=== PATIENT | male | born 1950 | race Caucasian/White ===

== ENCOUNTER 2017-06-29 22:19 | Inpatient (IN) | payer OTHER, MEDICARE ==
[~2017-06-29] VITALS: Ht 182.9 cm; Wt 131.2 kg
[2017-06-29 22:19] VITALS: BP 101/59; PULSE 52; RESP 18; O2SAT 97
[~2017-06-29 22:19] MED LIST: ASPI81CH3 PO; BACL20TA PO; BENZ100 PO; GABA400C5 PO; LISI-360 PO; PRAV40TA2 PO; TRAM50 PO; ZITH250T PO
[2017-06-29 22:24] VITALS: BP 133/64; PULSE 155; RESP 17; TEMP 98.3; O2SAT 96
[2017-06-29 22:30] VITALS: RESP 17; O2SAT 95
[2017-06-29] MEDS ORDERED: TRAM50TA PO (22:33)
[2017-06-29] MEDS ORDERED: TERA2CAP3 PO (22:33)
[2017-06-29] MEDS ORDERED: D200CAP PO (22:33)
[2017-06-29] MEDS ORDERED: GABA400C5 PO (22:33)
[2017-06-29] MEDS ORDERED: RANI300T PO (22:33)
[2017-06-29] MEDS ORDERED: LISI10TA PO (22:33)
[2017-06-29] MEDS ORDERED: PRAV40TA2 PO (22:33)
[2017-06-29] MEDS ORDERED: BACL10TA PO (22:33)
--- NOTE | 2017-06-29 22:35 | PD ---
HPI Chief Complaint: Cardiac Complaint Time Seen by Provider: 22:31 Travel History International Travel<30 days: No Contact w/Intl Traveler<30days: No Traveled to known affect area: No History of Present Illness HPI The patient is a 66 year old male who presents to the [facility] emergency department with a history of left arm pain, chest pain, headache, and fast heart rate that began 2 hours prior to arrival. He was sitting down when the symptoms suddenly began. The patient denies any history of irregular heart beat or CAD. He has had a cough with intermittent congestion over the last 3-4 weeks. He has intermittently been bringing up clear sputum. The patient denies any history of known fevers, neck pain, abdominal pain, vomiting, diarrhea, urinary symptoms, or neurologic symptoms. PCP: [facility] MELVIN Past Medical History Narrative Medical The patient's past medical history is significant for hypertension, hyperlipidemia, chronic back pain. Hx Anticoagulant Therapy: Yes (BABY ASA BID) Cardiovascular Problems: Yes (HTN, CHOL) High Cholesterol: Yes Diminished Hearing: No Hypertension: Yes Musculoskeletal: Yes (BACK PROBLEMS) Past Surgical History Narrative Surgical The patient's past surgical history is significant for cholecystectomy, tonsillectomy. Cholecystectomy: Yes (1997) Tonsillectomy: Yes Social History Alcohol Use: No Tobacco Use: No (QUIT ) Substance Use: No Allergies-Medications (Allergen,Severity, Reaction): Coded Allergies: azithromycin (Verified Allergy, Mild, Tingling, 06/30/17) Reported Meds & Prescriptions Reported Meds & Active Scripts Active Reported Tramadol (Tramadol HCl) 50 Mg Tab 50 Mg PO Q4H PRN Baclofen 10 Mg Tab 10 Mg PO Q8HR D3 Super Strength (Cholecalciferol) 2,000 Unit Cap 1,000 Units PO DAILY Lisinopril-Hctz 10-12.5 Mg Tab 1 Tab PO DAILY Ranitidine (Ranitidine HCl) 300 Mg Tab 300 Mg PO BID Terazosin (Terazosin HCl) 2 Mg Cap 2 Mg PO HS Pravastatin 40 Mg Tab 40 Mg PO HS Gabapentin 400 Mg Cap 400 Cap PO BID Review of Systems Except as stated in HPI: all other systems reviewed are Neg General / Constitutional: No: Fever Eyes: No: Visual changes HENT: Positive: Congestion, No: Headaches Cardiovascular: Positive: Chest Pain or Discomfort, Palpitations, Tachycardia, Dyspnea on exertion Respiratory: Positive: Cough, No: Shortness of Breath Gastrointestinal: Positive: Changes in Bowel Habits (one soft stool earlier today), No: Nausea, Vomiting, Diarrhea, Abdominal Pain Genitourinary: No: Dysuria Musculoskeletal: No: Pain Skin: No Rash Neurologic: No: Weakness Psychiatric: No: Depression Endocrine: No: Polydipsia Hematologic/Lymphatic: No: Easy Bruising Physical Exam Narrative General: The patient is a well-developed well-nourished male in no acute distress. Head and Neck exam: Head is normocephalic atraumatic. Eyes: EOMI, pupils are equal round and reactive to light. Nose: Midline septum with pink mucous membranes Mouth: Dentition unremarkable. Moist mucus membranes. Posterior oropharynx is not erythematous. No tonsillar hypertrophy. Uvula midline. Airway patent. Neck: No palpable lymphadenopathy. No nuchal rigidity. No thyromegaly. Cardiovascular: Irregularly irregular with a rate in the 130s without murmurs, gallops, or rubs. Lungs: Clear to auscultation bilaterally. No wheezes, rhonchi, or rales. Abdomen: Soft, without tenderness to palpation in all 4 quadrants of the abdomen. No guarding, rebound, or rigidity. Normal bowel sounds are audible. No tenderness on palpation of McBurney's point. Extremities: No clubbing or cyanosis. The patient has trace pedal edema bilateral lower extremities. 2+ pulses in all 4 extremities. No calf tenderness on palpation. Back: No costovertebral angle tenderness to palpation. Neurologic Exam: Grossly nonfocal. Skin Exam: No rash noted. Intact skin that is warm and dry. Data Data Last Documented VS Vital Signs Date Time Temp Pulse Resp B/P (MAP) Pulse Ox O2 Delivery O2 Flow Rate FiO2 06/30/17 00:09 83 19 66/38 (47) 94 Nasal Cannula 2.00 06/29/17 22:24 98.3 Orders Orders Electrocardiogram (06/29/17 22:31) Complete Blood Count With Diff (06/29/17 22:31) Comprehensive Metabolic Panel (06/29/17 22:31) Creatine Kinase (Cpk) (06/29/17 22:31) Ckmb (Isoenzyme) Profile (06/29/17 22:) Troponin I (06/29/17 22:31) B-Type Natriuretic Peptide (06/29/17 22:31) Prothrombin Time / Inr (Pt) (06/29/17 22:31) Act Partial Throm Time (Ptt) (06/29/17 22:31) Lipase (06/29/17:31) Urinalysis - C+S If Indicated (06/29/17 22:31) Magnesium (Mg) (06/29/17 22:31) Thyroid Stimulating Hormone (06/29/17 22:31) Chest, Single Ap (06/29/17 22:31) Iv Access Insert/Monitor (06/29/17 22:31) Ecg Monitoring (06/29/17 22:31) Oximetry (06/29/17 22:31) Blood Pressure (06/29/17 22:32) Diltiazem Inj (Cardizem Inj) (06/29/17 22:45) Diltiazem Inj (Cardizem Inj) (06/29/17 22:45) Sodium Chloride 0.9% Flush (Ns Flush) (06/29/17 22:45) Aspirin Chew (Aspirin Chew) (06/29/17 22:45) Nitroglycerin 2% Oint (Nitroglycerin 2% (06/29/17 22:45) Sodium Chlorid 0.9% 500 Ml Inj (Ns 500 M (06/29/17 22:45) Ct Brain W/O Iv Contrast(Rout) (06/29/17 22:47) CKMB (06/29/17 22:35) CKMB% (06/29/17 22:35) Ceftriaxone Inj (Rocephin Inj) (06/29/17 23:45) Azithromycin Inj (Zithromax Inj) (06/29/17 23:45) Sodium Chlor 0.9% 1000 Ml Inj (Ns 1000 M (06/30/17 00:15) Calcium Gluconate Inj (Calcium Gluconate (06/30/17 00:15) Admit Order (Ed Use Only) (06/30/17 00:09) Labs Laboratory Tests Test 06/29/17 22:35 06/29/17 23:57 White Blood Count 11.1 TH/MM3 Red Blood Count 4.67 MIL/MM3 Hemoglobin 14.1 GM/DL Hematocrit 41.6 % Mean Corpuscular Volume 89.0 FL Mean Corpuscular Hemoglobin 30.3 PG Mean Corpuscular Hemoglobin Concent 34.0 % Red Cell Distribution Width 13.7 % Platelet Count 247 TH/MM3 Mean Platelet Volume 8.9 FL Neutrophils (%) (Auto) 68.8 % Lymphocytes (%) (Auto) 21.6 % Monocytes (%) (Auto) 7.0 % Eosinophils (%) (Auto) 1.4 % Basophils (%) (Auto) 1.2 % Neutrophils # (Auto) 7.6 TH/MM3 Lymphocytes # (Auto) 2.4 TH/MM3 Monocytes # (Auto) 0.8 TH/MM3 Eosinophils # (Auto) 0.2 TH/MM3 Basophils # (Auto) 0.1 TH/MM3 CBC Comment DIFF FINAL Differential Comment Prothrombin Time 10.6 SEC Prothromb Time International Ratio 1.0 RATIO Activated Partial Thromboplast Time 30.4 SEC Blood Urea Nitrogen 25 MG/DL Creatinine 1.51 MG/DL Random Glucose 134 MG/DL Total Protein 8.0 GM/DL Albumin 4.2 GM/DL Calcium Level 9.2 MG/DL Magnesium Level 2.2 MG/DL Alkaline Phosphatase 109 U/L Aspartate Amino Transf (AST/SGOT) 22 U/L Alanine Aminotransferase (ALT/SGPT) 38 U/L Total Bilirubin 0.3 MG/DL Sodium Level 139 MEQ/L Potassium Level 3.6 MEQ/L Chloride Level 106 MEQ/L Carbon Dioxide Level 24.9 MEQ/L Anion Gap 8 MEQ/L Estimat Glomerular Filtration Rate 46 ML/MIN Total Creatine Kinase 180 U/L Creatine Kinase MB 2.6 NG/ML Troponin I LESS THAN 0.02 NG/ML B-Type Natriuretic Peptide 24 PG/ML Lipase 128 U/L Thyroid Stimulating Hormone 3rd Gen 3.090 uIU/ML Urine Color YELLOW Urine Turbidity CLEAR Urine pH 5.5 Urine Specific [place] 1.033 Urine Protein TRACE mg/dL Urine Glucose (UA) NEG mg/dL Urine Ketones NEG mg/dL Urine Occult Blood NEG Urine Nitrite NEG Urine Bilirubin NEG Urine Urobilinogen 2.0 MG/DL Urine Leukocyte Esterase SMALL Urine RBC 1 /hpf Urine WBC 3 /hpf Urine Squamous Epithelial Cells <1 /hpf Urine Mucus MANY /lpf Microscopic Urinalysis Comment CULT NOT INDICATED MDM Medical Decision Making Medical Screen Exam Complete: Yes Emergency Medical Condition: Yes Medical Record Reviewed: Yes Interpretation(s) Last Impressions Head CT 06/29/172246 Signed Impressions: Service Date/Time: Thursday, June 29, 2017 22:46 - CONCLUSION: Nothing acute. Terrance Webster MD Chest X-Ray 06/29/172230 Signed Impressions: Service Date/Time: Thursday, June 29, 2017 22:35 - CONCLUSION: 1. Left basilar airspace disease may represent atelectasis or early infiltrate. 2. Right lung is clear. Heart size is normal. Terrance Webster MD Differential Diagnosis A. fib with RVR, versus acute coronary syndrome, versus hyperthyroid disorder, versus pneumonia Narrative Course During the course of the patients emergency department visit, the patients history, examination, and differential diagnosis were reviewed with the patient. The patient was placed on a cardiac rehabilitation program director with oximetry and frequent blood pressure monitoring. The patient had IV access obtained and blood work sent for analysis. The patient had an ECG done on arrival. The patient's ECG reveals atrial fibrillation with RVR, no acute ST segment elevation. Nonspecific ST-T wave abnormalities. The patient was initially provided normal saline a 500 mL bolus times one, Cardizem 20 mg IV followed by a Cardizem drip. The patients laboratory studies were reviewed and remarkable for a white count of 11.1, hemoglobin 14.1, platelets 247 with a normal differential. CMP is remarkable for BUN of 25, creatinine 1.51, glucose 134, initial set of cardiac enzymes are within normal limits, BNP is 24, lipase 128, TSH 3.09, PT 10.6, PTT 30.4, urinalysis showed small leukocyte esterase otherwise unremarkable Radiology studies were reviewed and remarkable for a chest x-ray that showed a left basilar infiltrate. The patient was started on antibiotic to cover for pneumonia given his recent history of congestion and cough over the last 3-4 weeks. The patient had a drop in his blood pressure while on the Cardizem drip. The Cardizem drip was held. The patient was also initially placed on nitroglycerin 1 inch per chest wall for chest pain, however this was removed when he became hypotensive. An additional fluid bolus was administered. The hypotension resolved. The patients results were discussed with the patient, including the plan of care. I explained that further testing and/ or monitoring is indicated based on the patients history, examination, and/ or laboratory findings. Therefore, I recommended admission for additional evaluation. The patient expressed understanding and was agreeable with this plan. The patient was admitted to the hospital in guarded condition and sent to a bed under the care of the [facility] service. Physician Communication Physician Communication The patient's case including history, pertinent physical examination findings, and laboratory studies were discussed with Dr. Sepulveda. It was agreed that the patient would be admitted to the [facility] service. Diagnosis Primary Impression: Atrial fibrillation with RVR Additional Impression: Pneumonia Qualified Codes: J18.1 - Lobar pneumonia, unspecified organism Admitting Information Admitting Physician Requests: it Dinora Michelle MD Jun 29, 2017 22:35
[2017-06-29 22:41] VITALS: BP 114/53; PULSE 92; RESP 17; O2SAT 94
[2017-06-29] MEDS ORDERED: ASPIRIN 81 MG CHEW TAB CHEW ONE (22:45)
[2017-06-29] MEDS ORDERED: NITROGLYCERIN 2% OINT 1 GM PACKET TOPICAL ONE (22:45)
[2017-06-29] MEDS ORDERED: SODIUM CHLORID 0.9% 500 ML INJ 500 ML IV ONE (22:45)
[2017-06-29] MEDS ORDERED: SODIUM CHLORIDE 0.9% FLUSH 5 ML FLUSH IV FLUSH PRN (22:45)
[2017-06-29] MEDS ORDERED: DILTIAZEM HCL 25 MG/5 ML VIAL IV PUSH ONE (22:45)
--- NOTE | 2017-06-29 22:50 | RADRPT ---
EXAM DATE/TIME: 06/29/2017 22:35 [facility] COMPARISON: No previous studies available for comparison. INDICATIONS : Chest pain. Short of breath. Palpitations. Distal arm pain. MEDICAL HISTORY : None. SURGICAL HISTORY : None. ENCOUNTER: Initial ACUITY: 1 day PAIN SCORE: 3/10 LOCATION: Bilateral chest FINDINGS: A single view of the chest demonstrates the lungs to be symmetrically aerated with some airspace cons olidation in the left base, particularly medially. Right lung is clear. Heart size is normal. Osseous structures are intact CONCLUSION: 1. Left basilar airspace disease may represent atelectasis or early infiltrate. 2. Right lung is clear. Heart size is normal. Terrance Webster MD on June 29, 2017 at 22:46 Board Certified Radiologist. This report was verified electronically.
[2017-06-29 23:00] VITALS: BP 128/67; PULSE 106; RESP 17; O2SAT 97
[2017-06-29 23:01] LABS: AUTOMATED NEUTROPHIL # 7.6 TH/MM3 (1.8-7.7); BASOPHIL # 0.1 TH/MM3 (0-0.2); BASOPHIL % 1.2 % (0.0-2.0); EOSINOPHIL # 0.2 TH/MM3 (0-0.4); EOSINOPHIL % 1.4 % (0.0-4.0); HEMATOCRIT 41.6 % (39.0-51.0); HEMO FLAGS DIFF FINAL; LYMPH % 21.6 % (9.0-44.0); LYMPHOCYTE # 2.4 TH/MM3 (1.0-4.8); MEAN CORPUSCULAR HEMOGLOBIN 30.3 PG (27.0-34.0); NEUT % 68.8 % (16.0-70.0); PLATELET COUNT 247 TH/MM3 (150-450); RED BLOOD COUNT 4.67 MIL/MM3 (4.50-5.90); RED CELL DISTRIBUTION WIDTH 13.7 % (11.6-17.2); WHITE BLOOD COUNT 11.1 TH/MM3 (4.0-11.0)
[2017-06-29 23:10] LABS: APTT (PATIENT) 30.4 SEC (24.3-30.1); PROTHROMBIN TIME - PATIENT 10.6 SEC (9.8-11.6)
--- NOTE | 2017-06-29 23:16 | RADRPT ---
EXAM DATE/TIME: 06/29/2017 22:46 [facility] COMPARISON: No previous studies available for comparison. INDICATIONS : Cephalgia. RADIATION DOSE: 56.35 CTDIvol (mGy) MEDICAL HISTORY : Hypertension. SURGICAL HISTORY : None. ENCOUNTER: Initial ACUITY: 1 day PAIN SCALE: 5/10 LOCATION: cranial TECHNIQUE: Multiple contiguous axial images were obtained of the head. Using automated exposure control and adj ustment of the mA and/or kV according to patient size, radiation dose was kept as low as reasonably a chievable to obtain optimal diagnostic quality images. DICOM format image data is available electro nically for review and comparison. FINDINGS: CEREBRUM: The ventricles are normal for age. No evidence of midline shift, mass lesion, hemorrhage or acute in farction. No extra-axial fluid collections are seen. POSTERIOR FOSSA: The cerebellum and brainstem are intact. The 4th ventricle is midline. The cerebellopontine angle i s unremarkable. EXTRACRANIAL: The visualized portion of the orbits is intact. SKULL: The calvaria is intact. No evidence of skull fracture. CONCLUSION: Nothing acute. Terrance Webster MD on June 29, 2017 at 23:14 Board Certified Radiologist. This report was verified electronically.
[2017-06-29 23:20] LABS: ANION GAP 8 MEQ/L (5-15); AST (GOT) 22 U/L (15-37); BICARBONATE 24.9 MEQ/L (21.0-32.0); BLOOD UREA NITROGEN 25 MG/DL (7-18); CHLORIDE 106 MEQ/L (98-107); GLOMERULAR FILTRATION RATE 46 ML/MIN (>89); MAGNESIUM 2.2 MG/DL (1.5-2.5); POTASSIUM 3.6 MEQ/L (3.5-5.1); SODIUM (NA) 139 MEQ/L (136-145)
[2017-06-29] MEDS: DILTIAZEM INJ 125 MG in SODIUM CHLORIDE 0.9% INJ 100 ML IV PRN (23:25)
[2017-06-29 23:32] LABS: ALKALINE PHOSPHATASE 109 U/L (45-117); ALT (GPT) 38 U/L (12-78); CREATINE KINASE 180 U/L (39-308); TOTAL BILIRUBIN ADULT 0.3 MG/DL (0.2-1.0)
[2017-06-29 23:36] VITALS: BP 135/75; PULSE 119; RESP 14; O2SAT 98
[2017-06-29 23:44] LABS: CKMB 2.6 NG/ML (0.5-3.6)
[2017-06-29] MEDS ORDERED: cefTRIAXone INJ 1,000 MG in SODIUM CHLORIDE 0.9% INJ 100 ML IV ONE (23:45)
[2017-06-29] MEDS ORDERED: AZITHROMYCIN INJ 500 MG in SODIUM CHLOR 0.9% 250 ML INJ 250 ML IV ONE (23:45)
[2017-06-30] VITALS (28 sets, daily range): BP systolic 66–126; BP diastolic 38–78; PULSE 51–123; RESP 13–20; TEMP 97.7–98.6; O2SAT 92–98
[2017-06-30] MEDS: DILTIAZEM INJ 125 MG in SODIUM CHLORIDE 0.9% INJ 100 ML IV PRN (00:09)
[2017-06-30] MEDS ORDERED: SODIUM CHLOR 0.9% 1000 ML INJ 1,000 ML IV ONE (00:15)
[2017-06-30] MEDS ORDERED: SODIUM CHLORIDE 0.9% FLUSH 10 ML FLUSH IV FLUSH PRN (00:15)
[2017-06-30] MEDS ORDERED: CALCIUM GLUCONATE INJ 1 GM in DEXTROSE 5% IN WATER 100ML INJ 100 ML IV ONE ×2 (00:15)
[2017-06-30 00:29] LABS: BLOOD, URINE NEG (NEG); GLUCOSE,URINE NEG (NEG); KETONE, URINE NEG (NEG); MUCUS URINE MANY /lpf (OCC); NITRITE,URINE NEG (NEG); PH, URINE 5.5 (5.0-8.5); SQUAMOUS EPITHELIAL CELL URINE <1 /hpf (0-5); URINE COLOR YELLOW (YELLW/STRAW)
[2017-06-30 00:30] LABS: COMMENT (UR) CULT NOT INDICATED; CULTURE IF INDICATED CULT NOT INDICATED
[2017-06-30] MEDS ORDERED: AMIODARONE INJ 150 MG in DEXTROSE 5% IN WATER 100ML INJ 97 ML IV ONE ×2 (01:01)
[2017-06-30] MEDS: AMIODARONE INJ 450 MG in DEXTROSE 5% IN WATE(EXCEL) INJ 241 ML IV PRN ×2 (02:12)
--- NOTE | 2017-06-30 05:12 | HHI.HP ---
HPI Service [facility] Primary Care Physician Unknown Admission Diagnosis afib with rvr, chest pain r/o mi, lung infiltrate Diagnoses: Travel History International Travel<30 Days: No Contact w/Intl Traveler <30 Da: No Traveled to Known Affected Are: No History of Present Illness 66-year-old male with a past medical history significant for hypertension, hyperlipidemia and chronic back pain presents with new onset chest pain, heart palpitations and lightheadedness that began approximately 2 hours before coming to the emergency department. The patient reports that he went to work like he usually does yesterday and came home and began experiencing symptoms. He took his prescription medication of ibuprofen with no relief. He has no history of cardiac issues or irregular heartbeat. In the emergency department and his heart rate was 155 and EKG was significant for atrial fibrillation with rapid ventricular response. No ST segment elevations or depressions. He was treated with a diltiazem bolus and drip and subsequently became hypotensive to 73/39. His hypotension resolved with IV fluid hydration. Review of Systems Denies fever or chills Denies blurry vision, otorrhea, rhinorrhea Denies sore throat and cough History of chest pain and palpitations. No shortness of breath. No abdominal pain Denies constipation/diarrhea/nausea/vomiting Denies muscle pain/weakness No rashes Past Family Social History Past Medical History Hypertension Hyperlipidemia Chronic low back pain Past Surgical History Tonsillectomy Cholecystectomy Reported Medications Reported Meds & Active Scripts Active Reported Tramadol (Tramadol HCl) 50 Mg Tab 50 Mg PO Q4H PRN Baclofen 10 Mg Tab 10 Mg PO Q8HR D3 Super Strength (Cholecalciferol) 2,000 Unit Cap 1,000 Units PO DAILY Lisinopril-Hctz 10-12.5 Mg Tab 1 Tab PO DAILY Ranitidine (Ranitidine HCl) 300 Mg Tab 300 Mg PO BID Terazosin (Terazosin HCl) 2 Mg Cap 2 Mg PO HS Pravastatin 40 Mg Tab 40 Mg PO HS Gabapentin 400 Mg Cap 400 Cap PO BID Allergies: Coded Allergies: azithromycin (Verified Allergy, Mild, Tingling, 06/30/17) Family History Mother with cardiomyopathy. Social History Quit smoking 40 years ago. Rare alcohol. Denies marijuana or illicit drugs. Physical Exam Vital Signs Vital Signs Date Time Temp Pulse Resp B/P (MAP) Pulse Ox O2 Delivery O2 Flow Rate FiO2 06/30/17 04:00 89 06/30/17 03:04 120 06/30/17 03:00 97.7 74 16 113/71 (85) 96 06/30/17 02:12 75 102/69 06/30/17 02:00 97 06/30/17 01:28 06/30/17 01:17 123 88/52 06/30/17 00:45 102 17 97/54 (68) Nasal Cannula 2.00 97 06/30/17 00:28 106 17 104/51 (68) 97 Nasal Cannula 2.00 06/30/17 00:25 95 Nasal Cannula 3.00 06/30/17 00:17 108 13 82/46 (58) 97 Nasal Cannula 2.00 06/30/17 00:09 83 19 66/38 (47) 94 Nasal Cannula 2.00 06/30/17 00:09 116 73/39 06/29/17 23:36 119 14 135/75 (95) 98 Nasal Cannula 2.00 06/29/17 23:25 116 128/67 06/29/17 23:00 106 17 128/67 (87) 97 Nasal Cannula 2.00 06/29/17 22:41 92 17 114/53 (73) 94 Nasal Cannula 2.00 06/29/17 22:30 17 95 Nasal Cannula 2.00 06/29/17 22:24 98.3 155 17 133/64 (87) 96 06/29/17 22:19 52 18 101/59 (73) 97 Room Air Physical Exam GENERAL: male lying in bed sleeping SKIN: No rashes, ecchymoses or lesions. Cool and dry. HEAD: Atraumatic. Normocephalic. No temporal or scalp tenderness. EYES: Pupils equal round and reactive. Extraocular motions intact. No scleral icterus. No injection or drainage. ENT: Nose without bleeding, purulent drainage or septal hematoma. Throat without erythema, tonsillar hypertrophy or exudate. Uvula midline. Airway patent. NECK: Trachea midline. No JVD or lymphadenopathy. Supple, nontender, no meningeal signs. CARDIOVASCULAR: Irregularly irregular rate. Tachycardic. No murmurs/rubs/ gallops. RESPIRATORY: Clear to auscultation. Breath sounds equal bilaterally. No wheezes , rales, or rhonchi. GASTROINTESTINAL: Abdomen soft, non-tender, nondistended. No hepato-splenomegaly , or palpable masses. No guarding. MUSCULOSKELETAL: Extremities without clubbing, cyanosis, or edema. No joint tenderness, effusion, or edema noted. No calf tenderness. Negative Homans sign bilaterally. NEUROLOGICAL: Awake and alert. Cranial nerves II through XII intact. Motor and sensory grossly within normal limits. Normal speech. Laboratory Laboratory Tests Test 06/29/17 22:35 06/29/17 23:57 White Blood Count 11.1 Red Blood Count 4.67 Hemoglobin 14.1 Hematocrit 41.6 Mean Corpuscular Volume 89.0 Mean Corpuscular Hemoglobin 30.3 Mean Corpuscular Hemoglobin Concent 34.0 Red Cell Distribution Width 13.7 Platelet Count 247 Mean Platelet Volume 8.9 Neutrophils (%) (Auto) 68.8 Lymphocytes (%) (Auto) 21.6 Monocytes (%) (Auto) 7.0 Eosinophils (%) (Auto) 1.4 Basophils (%) (Auto) 1.2 Neutrophils # (Auto) 7.6 Lymphocytes # (Auto) 2.4 Monocytes # (Auto) 0.8 Eosinophils # (Auto) 0.2 Basophils # (Auto) 0.1 CBC Comment DIFF FINAL Differential Comment Prothrombin Time 10.6 Prothromb Time International Ratio 1.0 Activated Partial Thromboplast Time 30.4 Blood Urea Nitrogen 25 Creatinine 1.51 Random Glucose 134 Total Protein 8.0 Albumin 4.2 Calcium Level 9.2 Magnesium Level 2.2 Alkaline Phosphatase 109 Aspartate Amino Transf (AST/SGOT) 22 Alanine Aminotransferase (ALT/SGPT) 38 Total Bilirubin 0.3 Sodium Level 139 Potassium Level 3.6 Chloride Level 106 Carbon Dioxide Level 24.9 Anion Gap 8 Estimat Glomerular Filtration Rate 46 Total Creatine Kinase 180 Creatine Kinase MB 2.6 Troponin I LESS THAN 0.02 B-Type Natriuretic Peptide 24 Lipase 128 Thyroid Stimulating Hormone 3rd Gen 3.090 Urine Color YELLOW Urine Turbidity CLEAR Urine pH 5.5 Urine Specific [place] 1.033 Urine Protein TRACE Urine Glucose (UA) NEG Urine Ketones NEG Urine Occult Blood NEG Urine Nitrite NEG Urine Bilirubin NEG Urine Urobilinogen 2.0 Urine Leukocyte Esterase SMALL Urine RBC 1 Urine WBC 3 Urine Squamous Epithelial Cells <1 Urine Mucus MANY Microscopic Urinalysis Comment CULT NOT INDICATED Result Diagram: 06/29/17223406/29/172234 Caprini VTE Risk Assessment Caprini VTE Risk Assessment: Mod/High Risk (score >= 2) Caprini Risk Assessment Model Point Value = 1 Point Value = 2 Point Value = 3 Point Value = 5 Age 41-60 Minor surgery BMI > 25 kg/m2 Swollen legs Varicose veins or History of unexplained or recurrent spontaneous Oral contraceptives or hormone replacement Sepsis (< 1 month) Serious lung disease, including pneumonia (< 1 month) Abnormal pulmonary function Acute myocardial infarction Congestive heart failure (< 1 month) History of inflammatory bowel disease Medical patient at bed rest Age 61-74 Arthroscopic surgery Major open surgery (> 45 min) Laparoscopic surgery (> 45 min) Malignancy Confined to bed (> 72 hours) Immobilizing plaster cast Central venous access Age >= 75 History of VTE Family history of VTE Factor V Leiden Prothrombin [id number] Lupus anticoagulant Anticardiolipin antibodies Elevated serum homocysteine Heparin-induced thrombocytopenia Other congenital or acquired thrombophilia Stroke (< 1 month) Elective arthroplasty Hip, pelvis, or leg fracture Acute spinal cord injury (< 1 month) Prophylaxis Regimen Total Risk Factor Score Risk Level Prophylaxis Regimen 0-1 Low Early ambulation 2 Moderate Order ONE of the following: *Sequential Compression Device (SCD) *Heparin 5000 units SQ BID 3-4 Higher Order ONE of the following medications: *Heparin 5000 units SQ TID *Enoxaparin/Lovenox 40 mg SQ daily (WT < 150 kg, CrCl > 30 mL/min) *Enoxaparin/Lovenox 30 mg SQ daily (WT < 150 kg, CrCl > 10-29 mL/min) *Enoxaparin/Lovenox 30 mg SQ BID (WT < 150 kg, CrCl > 30 mL/min) AND/OR *Sequential Compression Device (SCD) 5 or more Highest Order ONE of the following medications: *Heparin 5000 units SQ TID (Preferred with Epidurals) *Enoxaparin/Lovenox 40 mg SQ daily (WT < 150 kg, CrCl > 30 mL/min) *Enoxaparin/Lovenox 30 mg SQ daily (WT < 150 kg, CrCl > 10-29 mL/min) *Enoxaparin/Lovenox 30 mg SQ BID (WT < 150 kg, CrCl > 30 mL/min) AND *Sequential Compression Device (SCD) Assessment and Plan Assessment and Plan 66-year-old male with a past medical history significant for hypertension, hyperlipidemia and chronic lower back pain presents with new onset A. fib with RVR and chest pain. 1. New onset atrial fibrillation with rapid ventricular response EKG showed A. fib with RVR, no ST segment elevations or depressions, reviewed by me Initial troponin within normal limits ACS rule out pending; serial troponins/EKGs Patient started on diltiazem bolus/drip and became hypotensive requiring aggressive fluid resuscitation in the emergency department. He was transitioned to an amiodarone drip. BP now 113/71, pulse 89. Cardiology consulted, appreciate assistance 2. SUSANNE BUN/creatinine 25/1.51 (baseline unknown) Patient status post 2 L in the ED Monitor BMP 2. Hypertension Holding home antihypertensives at this time as patient became hypotensive to 73/ 39 3. Hyperlipidemia Continue home statin FEN Heart healthy diet Electrolytes: monitor and replete prn SCDs Physician Certification 2 Midnight Certification Type: Admission for Inpatient Services Order for Inpatient Services The services are ordered in accordance with Medicare regulations or non- Medicare payer requirements, as applicable. In the case of services not specified as inpatient-only, they are appropriately provided as inpatient services in accordance with the 2-midnight benchmark. Estimated LOS (days): 2 2 days is the estimated time the patient will need to remain in the hospital, assuming treatment plan goals are met and no additional complications. Post-Hospital Plan: Not yet determined Lida Sepulveda MD Jun 30, 2017 05:12
[2017-06-30 07:05] LABS: CREATINE KINASE 137 U/L (39-308)
[2017-06-30] MEDS ORDERED: AMIODARONE INJ 150 MG in DEXTROSE 5% IN WATER 100ML INJ 100 ML IV ONE ×2 (08:16)
--- NOTE | 2017-06-30 08:34 | MB ---
cc: MAYUR FREEMAN M.D. DATE OF CONSULTATION 06/30/2017 REASON FOR CONSULTATION Chest pain, atrial fibrillation. HISTORY OF PRESENT ILLNESS The patient is a 66-year-old white male with a history of hypertension, hyperlipidemia, who was in his usual state of health up until about 08:30 p.m. last night when he began to experience pounding, racing, fluttering palpitations. At the same time he developed a fairly severe bilateral headache and a substernal chest tightness. He is unsure how long the chest tightness lasted, possibly 20-30 minutes. The palpitations persisted for probably at least a couple of hours. He has continued to have slight palpitations this morning. This morning he also had an episode of chest tightness lasting a few minutes. His headache has considerably improved. The patient denies shortness of breath, nausea, diaphoresis, paroxysmal nocturnal dyspnea, syncope, near-syncope. He has intermittently felt lightheaded. Chronically he has dependent ankle edema without significant change recently. PAST MEDICAL HISTORY 1. Hypertension. 2. Hyperlipidemia. PAST SURGICAL HISTORY 1. Tonsillectomy. 2. Cholecystectomy. CARDIAC MEDICATIONS AT HOME 1. Pravastatin 40 mg q.h.s. 2. Lisinopril HCT 10.5 one q.d. ALLERGIES AZITHROMYCIN. FAMILY HISTORY The patient's mother may have sustained myocardial infarctions in her 50s and 60s. SOCIAL HISTORY The patient quit smoking more than 30 years ago . He denies alcohol abuse. REVIEW OF SYSTEMS As in the history of present illness , otherwise negative or noncontributory. He also denies visual changes, unilateral weakness or numbness, abdominal pain, melena, dyspepsia, bright red blood per rectum. PHYSICAL EXAMINATION VITAL SIGNS: His blood pressure is 113/71 with a pulse of 120, respirations 16. GENERAL He is a well-developed, well-nourished white male in no acute distress. NECK/HEENT EXAMINATION: Jugular venous pressure is normal. Carotid pulses are 2+ bilaterally and without bruits. EXAMINATION OF THE CHEST: Clear lung torres. CARDIAC EXAMINATION: He has a tachycardiac, regular rhythm, without S3-S4 or murmur. ABDOMINAL EXAMINATION: He has a soft, obese, nontender abdomen. Bowel sounds are present. There is no definite hepatosplenomegaly. EXAMINATION OF THE EXTREMITIES: No clubbing, cyanosis or edema. LABORATORY DATA WBC 11.1, hemoglobin 14.1, platelets 247. Potassium 3.6, BUN 25, creatinine 1.51. Negative cardiac enzymes. CHEST X-RAY Left basilar airspace disease, possibly due to atelectasis. EKG Atrial fibrillation with a rapid ventricular response, anterolateral ST depression, consider ischemia. IMPRESSION Paroxysmal atrial fibrillation, chest pain in this 66-year-old white male with history of hypertension and hyperlipidemia. At this time on monitoring he may be in an atrial tachycardia. Initial EKG did show atrial fibrillation. His chest pains here in the last 24 hours are somewhat suggestive of angina. Cardiac enzymes are negative for myocardial infarction. The etiology of the atrial fibrillation may be his history of hypertension. With respect to his thromboembolic risk, it appears to be overall low, providing his left ventricular function is normal. Echocardiogram is pending. RECOMMENDATIONS 1. Daily aspirin. 2. Agree with intravenous amiodarone for now. 3. Start oral Cardizem. 4. Check a Lexiscan nuclear stress test. 5. Await his 2-D echo. MD AYUSH Clemente/TAE /8:10 AM /8:20 AM MTDD
--- NOTE | 2017-06-30 08:54 | HHI.PR ---
Subjective Remarks in no distress. denies chest pain or dizziness today. Objective Vitals Vital Signs Date Time Temp Pulse Resp B/P (MAP) Pulse Ox O2 Delivery O2 Flow Rate FiO2 06/30/17 06:06 84 06/30/17 05:00 105 06/30/17 04:00 89 06/30/17 03:04 120 06/30/17 03:00 97.7 74 16 113/71 (85) 96 06/30/17 02:12 75 102/69 06/30/17 02:00 97 06/30/17 01:28 06/30/17 01:17 123 88/52 06/30/17 00:45 102 17 97/54 (68) Nasal Cannula 2.00 97 06/30/17 00:28 106 17 104/51 (68) 97 Nasal Cannula 2.00 06/30/17 00:25 95 Nasal Cannula 3.00 06/30/17 00:17 108 13 82/46 (58) 97 Nasal Cannula 2.00 06/30/17 00:09 83 19 66/38 (47) 94 Nasal Cannula 2.00 06/30/17 00:09 116 73/39 06/29/17 23:36 119 14 135/75 (95) 98 Nasal Cannula 2.00 06/29/17 23:25 116 128/67 06/29/17 23:00 106 17 128/67 (87) 97 Nasal Cannula 2.00 06/29/17 22:41 92 17 114/53 (73) 94 Nasal Cannula 2.00 06/29/17 22:30 17 95 Nasal Cannula 2.00 06/29/17 22:24 98.3 155 17 133/64 (87) 96 06/29/17 22:19 52 18 101/59 (73) 97 Room Air I/O 06/29/17 06/29/17 06/29/17 06/30/17 06/30/17 06/30/17 07:00 15:00 23:00 07:00 15:00 23:00 Intake Total 2173 ml Output Total 400 ml Balance 1773 ml Intake Oral 240 ml IV Total 1933 ml Output Urine Total 400 ml Result Diagram: 06/29/17223406/29/172234 Imaging Last Impressions Head CT 06/29/172246 Signed Impressions: Service Date/Time: Thursday, June 29, 2017 22:46 - CONCLUSION: Nothing acute. Terrance Webster MD Chest X-Ray 06/29/171 Signed Impressions: Service Date/Time: Thursday, June 29, 2017 22:35 - CONCLUSION: 1. Left basilar airspace disease may represent atelectasis or early infiltrate. 2. Right lung is clear. Heart size is normal. Terrance Webster MD Objective Remarks GENERAL: This is a well-nourished, well-developed patient, in no apparent distress. CARDIOVASCULAR: Regular rate and irregular rhythm without murmurs, gallops, or rubs. RESPIRATORY: Clear to auscultation. Breath sounds equal bilaterally. No wheezes , rales, or rhonchi. GASTROINTESTINAL: Abdomen soft, non-tender, nondistended. Normal, active bowel sounds MUSCULOSKELETAL: Extremities without clubbing, cyanosis, or edema. NEURO: Alert & Oriented x4 to person, place, time, situation. Moves all ext x4 Medications and IVs Current Medications Diltiazem HCl 125 mg/Sodium Chloride 125 ml @ 5 mls/hr TITRATE PRN IV tachycardia Last administered on 06/29/17 23:25; Start 06/29/17 at 22:45; Stop 06/30/17 at 01:00; Status DC Diltiazem HCl (Cardizem Inj) 20 mg BOLUS ONCE IV PUSH Last administered on 22:44; Start 06/29/17 at 22:45; Stop 06/29/17 at 22:46; Status DC IV Flush (NS Flush) 2 ml UNSCH PRN IV FLUSH FLUSH AFTER USING IV ACCESS; Start 06/29/17 at 22:45; Stop 06/30/17 at 00:25; Status DC Aspirin (Aspirin Chew) 162 mg ONCE ONCE CHEW Last administered on 06/29/17 22:49; Start 06/29/17 at 22:45; Stop 06/29/17 at 22:46; Status DC Nitroglycerin (Nitroglycerin 2% Oint) 1 inch ONCE ONCE TOPICAL Last administered on 06/29/17 22:49; Start 06/29/17 at 22:45; Stop 06/29/17 at 22 :46; Status DC Sodium Chloride 500 ml @ 500 mls/hr BOLUS ONCE IV Last administered on 22:45; Start 06/29/17 at 22:45; Stop 06/29/17 at 23:44; Status DC Ceftriaxone Sodium 1000 mg/ Sodium Chloride 100 ml @ 200 mls/hr ONCE ONCE IV Last administered on 06/30/17 00:23; Start 06/29/17 at 23:45; Stop 06/30/17 at 00:14; Status DC Azithromycin 500 mg/Sodium Chloride 250 ml @ 250 mls/hr ONCE ONCE IV Last administered on 06/30/17 00:04; Start 06/29/17 at 23:45; Stop 06/30/17 at 00 :44; Status DC Sodium Chloride 1,000 ml @ 1,000 mls/hr Q1H ONCE IV Last administered on 06/30 00:12; Start 06/30/17 at 00:15; Stop 06/30/17 at 01:14; Status DC Calcium Gluconate 1 gm/Dextrose 110 ml @ 110 mls/hr ONCE ONCE IV Last administered on 06/30/17 00:17; Start 06/30/17 at 00:15; Stop 06/30/17 at 01 :14; Status DC Sodium Chloride (NS Flush) 2 ml UNSCH PRN IV FLUSH FLUSH AFTER USING IV ACCESS ; Start 06/30/17 at 00:15 Sodium Chloride (NS Flush) 2 ml BID IV FLUSH ; Start 06/30/17 at 09:00 Amiodarone HCl 450 mg/Dextrose 250 ml @ 33.33 mls/ hr Q7H31M PRN IV Per Protocol Last administered on 06/30/17 02:12; Start 06/30/17 at 01:11 Amiodarone HCl 150 mg/Dextrose 100 ml @ 100 mls/hr Q1H ONCE IV Last administered on 06/30/17 01:17; Start 06/30/17 at 01:01; Stop 06/30/17 at 02 :00; Status DC Gabapentin (Neurontin) 400 mg BID PO ; Start 06/30/17 at 09:00 Pravastatin Sodium (Pravachol) 40 mg HS PO ; Start 06/30/17 at 21:00 Terazosin HCl (Hytrin) 2 mg HS PO ; Start 06/30/17 at 21:00 Famotidine (Pepcid) 40 mg BID PO ; Start 06/30/17 at 09:00 Diltiazem HCl (Cardizem) 30 mg QID PO ; Start 06/30/17 at 09:00 Aspirin (Ecotrin Ec) 162 mg DAILY PO ; Start 06/30/17 at 09:00 Amiodarone HCl 150 mg/Dextrose 103 ml @ 600 mls/hr Q11M ONCE IV ; Start at 08:16; Stop 06/30/17 at 08:27; Status DC A/P Assessment and Plan A/P 1. New onset atrial fibrillation with rapid ventricular response EKG showed A. fib with RVR, no ST segment elevations or depressions, reviewed by me Initial troponin within normal limits Patient started on diltiazem bolus/drip and became hypotensive requiring aggressive fluid resuscitation in the emergency department. He was transitioned to an amiodarone drip. continue po cardizem and aspirin echo and stress test pending. Cardiology consult appreciated. 2. renal insufficiency with unknown duration BUN/creatinine 25/1.51 (baseline unknown) Patient status post 2 L in the ED Monitor BMP 2. Hypertension continue po cardizem with close monitoring of BP. 3. Hyperlipidemia Continue home statin Jose Roberto Best MD Jun 30, 2017 08:54
[2017-06-30] MEDS: ASPIRIN EC 81 MG TABEC PO SCH (09:04)
[2017-06-30] MEDS: DILTIAZEM HCL 30 MG TAB PO SCH ×4 (09:04→20:51)
[2017-06-30] MEDS: FAMOTIDINE 20 MG TAB PO SCH ×2 (09:04→20:51)
[2017-06-30] MEDS: SODIUM CHLORIDE 0.9% FLUSH 10 ML FLUSH IV FLUSH SCH ×2 (09:05→20:50)
[2017-06-30] MEDS: GABAPENTIN 400 MG CAP PO SCH ×2 (09:05→20:50)
[2017-06-30 12:28] LABS: HEMATOCRIT 39.2 % (39.0-51.0); MEAN CELL VOLUME 90.3 FL (80.0-100.0); MEAN CORPUSCULAR HEMOGLOBIN 30.8 PG (27.0-34.0); MEAN CORPUSCULAR HGB CONC 34.2 % (32.0-36.0); PLATELET COUNT 212 TH/MM3 (150-450); RED BLOOD COUNT 4.34 MIL/MM3 (4.50-5.90); REVIEW FLAG FINAL; WHITE BLOOD COUNT 9.2 TH/MM3 (4.0-11.0)
[2017-06-30 12:56] LABS: ANION GAP 6 MEQ/L (5-15); BLOOD UREA NITROGEN 21 MG/DL (7-18); CHLORIDE 106 MEQ/L (98-107); GLOMERULAR FILTRATION RATE 65 ML/MIN (>89); POTASSIUM 3.8 MEQ/L (3.5-5.1); SODIUM (NA) 137 MEQ/L (136-145)
[2017-06-30 13:00] LABS: CREATINE KINASE 125 U/L (39-308)
--- NOTE | 2017-06-30 17:40 | EKG ---
Date Performed: 06/30/2017 Time Performed: 04:11:46 PTAGE: 66 years EKG: Atrial fibrillation with rapid ventricular response Incomplete RBBB Anteroseptal ST-T reina es are nonspecific Since previous tracing, no significant change noted Abnormal ECG PREVIOUS TRACING : 06/29/2017 22.26 DOCTOR: Shabnam Thomas Interpretating Date/Time 06/30/2017 17:39:39
--- NOTE | 2017-06-30 17:40 | EKG ---
Date Performed: 06/29/2017 Time Performed: 22:26:42 PTAGE: 66 years EKG: ATRIAL FIBRILLATION WITH RAPID VENTRICULAR RESPONSE INCOMPLETE RIGHT BUNDLE BRANCH BLOCK NO NSPECIFIC ST & T-WAVE ABNORMALITY ABNORMAL RHYTHM ECG NO PREVIOUS TRACING DOCTOR: Shabnam Thomas Interpretating Date/Time 06/30/2017 17:39:25
[2017-06-30] MEDS: PRAVASTATIN SOD 40 MG TAB PO SCH (20:51)
[2017-06-30] MEDS: TERAZOSIN HCL 1 MG CAP PO SCH (20:51)
[2017-07-01] VITALS (21 sets, daily range): BP systolic 120–147; BP diastolic 69–77; PULSE 68–94; RESP 16–18; TEMP 98.4–99.1; O2SAT 93–95
[2017-07-01] MEDS: AMIODARONE INJ 450 MG in DEXTROSE 5% IN WATE(EXCEL) INJ 241 ML IV PRN ×4 (03:54→18:47)
--- NOTE | 2017-07-01 08:17 | PD.CARD.PN ---
Subjective Subjective Remarks Denies recurrent palpitations, recurrent CP. Denies dizziness, PND, nausea. Objective Medications Item Value Date Time Pravastatin Sodium 40 mg 06/30/172099 (Pravachol) HS/PO 06/30/172050 Terazosin HCl 2 mg 06/30/172099 (Hytrin) HS/PO 06/30/172050 Diltiazem HCl 30 mg 06/30/17899 (Cardizem) QID/PO 06/30/172050 Aspirin 162 mg 06/30/17899 (Ecotrin Ec) DAILY/PO 06/30/17 09 Amiodarone HCl 250 ml @ 33.33 mls/hr 06/30/17 0111 450 mg/Dextrose .Q7H31M PRN/IV 07/01/17 0354 Current Medications Medications (Trade) Dose Ordered Sig/Lety Route Start Time Stop Time Status Last Admin (NS Flush) 2 ml UNSCH PRN IV FLUSH 06/30/17 00:15 (NS Flush) 2 ml BID IV FLUSH 06/30/17 09:00 06/30/17 09:05 Amiodarone HCl 450 mg/Dextrose 250 ml @ 33.33 mls/ hr Q7H31M PRN IV 06/30/17 01:11 07/01/17 03:54 (Neurontin) 400 mg BID PO 06/30/17 09:00 06/30/17 20:50 (Pravachol) 40 mg HS PO 06/30/17 21:00 06/30/17 20:51 (Hytrin) 2 mg HS PO 06/30/17 21:00 06/30/17 20:51 (Pepcid) 40 mg BID PO 06/30/17 09:00 06/30/17 20:51 (Cardizem) 30 mg QID PO 06/30/17 09:00 06/30/17 20:51 (Ecotrin Ec) 162 mg DAILY PO 06/30/17 09:00 06/30/17 09:04 Vital Signs / I&O Vital Signs Date Time Temp Pulse Resp B/P (MAP) Pulse Ox O2 Delivery O2 Flow Rate FiO2 07/01/17 06:00 71 07/01/17 05:00 68 07/01/17 04:00 73 07/01/17 04:00 98.7 73 16 120/69 (86) 94 07/01/17 03:54 73 120/69 07/01/17 03:00 72 07/01/17 02:00 70 07/01/17 01:00 70 07/01/17 00:00 68 06/30/17 23:00 72 06/30/17 23:00 98.5 73 16 118/69 (85) 92 06/30/17 22:00 72 06/30/17 21:00 70 06/30/17 20:00 98.3 72 16 126/78 (94) 94 06/30/17 20:00 70 06/30/17 19:00 64 06/30/17 18:00 71 06/30/17 17:00 77 06/30/17 16:00 72 06/30/17 15:00 67 06/30/17 15:00 98.6 67 20 117/68 (84) 96 06/30/17 14:00 70 06/30/17 13:00 69 06/30/17 12:00 70 06/30/17 11:00 65 06/30/17 11:00 98.0 65 20 114/70 (85) 93 06/30/17 10:00 51 06/30/17 09:00 76 I/O 06/30/17 06/30/17 06/30/17 07/01/17 07/01/17 07/01/17 07:00 15:00 23:00 07:00 15:00 23:00 Intake Total 2173 ml 691 ml 444 ml Output Total 400 ml 1025 ml Balance 1773 ml 691 ml -581 ml Intake Oral 240 ml 480 ml 240 ml IV Total 1933 ml 211 ml 204 ml Output Urine Total 400 ml 1025 ml # Voids 3 # Bowel Movements 1 0 Physical Exam GENERAL: Well developed, well nourished. No acute distress. HEENT: Jugular venous pressure is normal. CHEST: Lungs clear to auscultation bilaterally. Unlabored respiratory effort. CARDIAC: Regular rate and rhythm without S3, S4, or murmur. ABDOMEN: Soft, nontender, no hepatosplenomegaly. Bowel sounds present. EXTREMITIES: No clubbing, cyanosis, or edema. Laboratory Laboratory Tests Test 06/30/17 11:48 White Blood Count 9.2 TH/MM3 Red Blood Count 4.34 MIL/MM3 Hemoglobin 13.4 GM/DL Hematocrit 39.2 % Mean Corpuscular Volume 90.3 FL Mean Corpuscular Hemoglobin 30.8 PG Mean Corpuscular Hemoglobin Concent 34.2 % Red Cell Distribution Width 14.0 % Platelet Count 212 TH/MM3 Mean Platelet Volume 8.9 FL Blood Urea Nitrogen 21 MG/DL Creatinine 1.12 MG/DL Random Glucose 99 MG/DL Calcium Level 8.9 MG/DL Sodium Level 137 MEQ/L Potassium Level 3.8 MEQ/L Chloride Level 106 MEQ/L Carbon Dioxide Level 25.0 MEQ/L Anion Gap 6 MEQ/L Estimat Glomerular Filtration Rate 65 ML/MIN Total Creatine Kinase 125 U/L Troponin I LESS THAN 0.02 NG/ML Assessment and Plan Problem List: (1) Paroxysmal atrial fibrillation ICD Codes: I48.0 - Paroxysmal atrial fibrillation Status: Acute Plan: Back in NSR. Tolerating Amiodarone so far. Thromboembolic risk overall low providing LV function normal. Echo pending. REC continue IV Amiodarone through today change to long acting diltiazem continue aspirin (2) Chest pain ICD Codes: R07.9 - Chest pain, unspecified Status: Acute Plan: Stable overnight. Cardiac enzymes negative for OR. For Lexiscan nuclear stress test today. (3) Hypertension ICD Codes: I10 - Essential (primary) hypertension Status: Chronic Plan: Stable. Normotensive. Code Status full code Discussed Condition With patient Problem Qualifiers (1) Chest pain: Qualified Codes: R07.9 - Chest pain, unspecified (2) Hypertension: Qualified Codes: I10 - Essential (primary) hypertension Sanket Gutierrez MD Jul 01, 2017 08:17
--- NOTE | 2017-07-01 09:32 | HHI.PR ---
Subjective Remarks in no acute distress. denies chest pain or sob. no new complaints. Objective Vitals Vital Signs Date Time Temp Pulse Resp B/P (MAP) Pulse Ox O2 Delivery O2 Flow Rate FiO2 07/01/17 08:43 98.7 75 16 130/74 (92) 94 07/01/17 08:39 75 07/01/17 08:00 71 07/01/17 06:00 71 07/01/17 05:00 68 07/01/17 04:00 73 07/01/17 04:00 98.7 73 16 120/69 (86) 94 07/01/17 03:54 73 120/69 07/01/17 03:00 72 07/01/17 02:00 70 07/01/17 01:00 70 07/01/17 00:00 68 06/30/17 23:00 72 06/30/17 23:00 98.5 73 16 118/69 (85) 92 06/30/17 22:00 72 06/30/17 21:00 70 06/30/17 20:00 98.3 72 16 126/78 (94) 94 06/30/17 20:00 70 06/30/17 19:00 64 06/30/17 18:00 71 06/30/17 17:00 77 06/30/17 16:00 72 06/30/17 15:00 67 06/30/17 15:00 98.6 67 20 117/68 (84) 96 06/30/17 14:00 70 06/30/17 13:00 69 06/30/17 12:00 70 06/30/17 11:00 65 06/30/17 11:00 98.0 65 20 114/70 (85) 93 06/30/17 10:00 51 I/O 06/30/17 06/30/17 06/30/17 07/01/17 07/01/17 07/01/17 07:00 15:00 23:00 07:00 15:00 23:00 Intake Total 2173 ml 691 ml 444 ml Output Total 400 ml 1025 ml Balance 1773 ml 691 ml -581 ml Intake Oral 240 ml 480 ml 240 ml IV Total 1933 ml 211 ml 204 ml Output Urine Total 400 ml 1025 ml # Voids 3 # Bowel Movements 1 0 Result Diagram: 06/30/17 1148 06/30/17 1148 Imaging Last Impressions Head CT 06/29/17 2247 Signed Impressions: Service Date/Time: Thursday, June 29, 2017 22:46 - CONCLUSION: Nothing acute. Terrance Webster MD Chest X-Ray 06/29/172230 Signed Impressions: Service Date/Time: Thursday, June 29, 2017 22:35 - CONCLUSION: 1. Left basilar airspace disease may represent atelectasis or early infiltrate. 2. Right lung is clear. Heart size is normal. Terrance Webster MD Objective Remarks GENERAL: This is a well-nourished, well-developed patient, in no apparent distress. CARDIOVASCULAR: Regular rate and irregular rhythm without murmurs, gallops, or rubs. RESPIRATORY: Clear to auscultation. Breath sounds equal bilaterally. No wheezes , rales, or rhonchi. GASTROINTESTINAL: Abdomen soft, non-tender, nondistended. Normal, active bowel sounds MUSCULOSKELETAL: Extremities without clubbing, cyanosis, or edema. NEURO: Alert & Oriented x4 to person, place, time, situation. Moves all ext x4 Medications and IVs Current Medications Diltiazem HCl 125 mg/Sodium Chloride 125 ml @ 5 mls/hr TITRATE PRN IV tachycardia Last administered on 06/29/17 23:25; Start 06/29/17 at 22:45; Stop 06/30/17 at 01:00; Status DC Diltiazem HCl (Cardizem Inj) 20 mg BOLUS ONCE IV PUSH Last administered on 22:44; Start 06/29/17 at 22:45; Stop 06/29/17 at 22:46; Status DC IV Flush (NS Flush) 2 ml UNSCH PRN IV FLUSH FLUSH AFTER USING IV ACCESS; Start 06/29/17 at 22:45; Stop 06/30/17 at 00:25; Status DC Aspirin (Aspirin Chew) 162 mg ONCE ONCE CHEW Last administered on 06/29/17 22:49; Start 06/29/17 at 22:45; Stop 06/29/17 at 22:46; Status DC Nitroglycerin (Nitroglycerin 2% Oint) 1 inch ONCE ONCE TOPICAL Last administered on 06/29/17 22:49; Start 06/29/17 at 22:45; Stop 06/29/17 at 22 :46; Status DC Sodium Chloride 500 ml @ 500 mls/hr BOLUS ONCE IV Last administered on 22:45; Start 06/29/17 at 22:45; Stop 06/29/17 at 23:44; Status DC Ceftriaxone Sodium 1000 mg/ Sodium Chloride 100 ml @ 200 mls/hr ONCE ONCE IV Last administered on 06/30/17 00:23; Start 06/29/17 at 23:45; Stop 06/30/17 at 00:14; Status DC Azithromycin 500 mg/Sodium Chloride 250 ml @ 250 mls/hr ONCE ONCE IV Last administered on 06/30/17 00:04; Start 06/29/17 at 23:45; Stop 06/30/17 at 00 :44; Status DC Sodium Chloride 1,000 ml @ 1,000 mls/hr Q1H ONCE IV Last administered on 06/30 00:12; Start 06/30/17 at 00:15; Stop 06/30/17 at 01:14; Status DC Calcium Gluconate 1 gm/Dextrose 110 ml @ 110 mls/hr ONCE ONCE IV Last administered on 06/30/17 00:17; Start 06/30/17 at 00:15; Stop 06/30/17 at 01 :14; Status DC Sodium Chloride (NS Flush) 2 ml UNSCH PRN IV FLUSH FLUSH AFTER USING IV ACCESS ; Start 06/30/17 at 00:15 Sodium Chloride (NS Flush) 2 ml BID IV FLUSH Last administered on 06/30/17 09 :05; Start 06/30/17 at 09:00 Amiodarone HCl 450 mg/Dextrose 250 ml @ 33.33 mls/ hr Q7H31M PRN IV Per Protocol Last administered on 07/01/17 03:54; Start 06/30/17 at 01:11 Amiodarone HCl 150 mg/Dextrose 100 ml @ 100 mls/hr Q1H ONCE IV Last administered on 06/30/17 01:17; Start 06/30/17 at 01:01; Stop 06/30/17 at 02 :00; Status DC Gabapentin (Neurontin) 400 mg BID PO Last administered on 06/30/17 20:50; Start 06/30/17 at 09:00 Pravastatin Sodium (Pravachol) 40 mg HS PO Last administered on 06/30/17 20: 51; Start 06/30/17 at 21:00 Terazosin HCl (Hytrin) 2 mg HS PO Last administered on 06/30/17 20:51; Start 06/30/17 at 21:00 Famotidine (Pepcid) 40 mg BID PO Last administered on 06/30/17 20:51; Start 06/30/17 at 09:00 Diltiazem HCl (Cardizem) 30 mg QID PO Last administered on 06/30/17 20:51; Start 06/30/17 at 09:00; Stop 07/01/17 at 08:18; Status DC Aspirin (Ecotrin Ec) 162 mg DAILY PO Last administered on 06/30/17 09:04; Start 06/30/17 at 09:00 Amiodarone HCl 150 mg/Dextrose 103 ml @ 600 mls/hr Q11M ONCE IV ; Start at 08:16; Stop 06/30/17 at 08:27; Status DC Diltiazem HCl (Cardizem Cd) 180 mg DAILY PO ; Start 07/01/17 at 09:00 A/P Assessment and Plan A/P 1. New onset atrial fibrillation with rapid ventricular response- now back in NSR continue IV Amiodarone. continue po cardizem and aspirin echo and stress test pending. Cardiology f/u appreciated. 2. renal insufficiency with unknown duration renal function improved- will monitor. 2. Hypertension continue po cardizem with close monitoring of BP. 3. Hyperlipidemia Continue home statin Discharge Planning possible dc home tomorrow if stable and cleared by cardiology- pending echo and stress test . Jose Roberto Best MD Jul 01, 2017 09:32
[2017-07-01] MEDS ORDERED: REGADENOSON INJ 0.4 MG/5 ML SYR ONE (10:40)
[2017-07-01] MEDS: FAMOTIDINE 20 MG TAB PO SCH ×2 (11:52→20:39)
[2017-07-01] MEDS: GABAPENTIN 400 MG CAP PO SCH ×2 (11:52→20:38)
[2017-07-01] MEDS: DILTIAZEM-CD 180 MG CAP ER PO SCH (11:52)
[2017-07-01] MEDS: ASPIRIN EC 81 MG TABEC PO SCH (11:54)
--- NOTE | 2017-07-01 12:03 | RADRPT ---
EXAM DATE/TIME: 06/30/2017 14:32 [facility] COMPARISON: No previous studies available for comparison. INDICATIONS : Substernal chest pain. Angina. Atrial fibrillation. DOSE: 30.1 mCi Tc99m Myoview at stress. 30.1 mCi Tc99m Myoview at rest. 0.4 mg Lexiscan STRESS SYMPTOMS: None. EJECTION FRACTION: 59% MEDICAL HISTORY : Hypertension. SURGICAL HISTORY : Cholecystectomy. Tonsillectomy. ENCOUNTER: Initial ACUITY: 1 day PAIN SCALE: 6/10 LOCATION: Substernal chest TECHNIQUE: The patient underwent pharmacologic stress with infusion of prescribed dose. Continuous ECG tracing was monitored during stress. Gated SPECT imaging was performed after stress and conventional SPECT i maging was performed at rest. The examination was performed on a SPECT/CT scanner, both attenuation and non-corrected datasets were reviewed. FINDINGS: The best perfused myocardium is the anterior lateral wall. There is minimal redistribution of the small segment the anterobasal wall mid myocardium. There is n ormal wall motion across this segment. CONCLUSION: Minimal redistribution as described above borderline significance. RISK CATEGORY: Low (<1% Annual Mortality Rate) Carlos Traylor MD FACR on July 01, 2017 at 11:59 Board Certified Radiologist. This report was verified electronically.
[2017-07-01] MEDS: SODIUM CHLORIDE 0.9% FLUSH 10 ML FLUSH IV FLUSH SCH (20:38)
[2017-07-01] MEDS: TERAZOSIN HCL 1 MG CAP PO SCH (20:38)
[2017-07-01] MEDS: PRAVASTATIN SOD 40 MG TAB PO SCH (20:39)
[2017-07-02] VITALS (14 sets, daily range): BP systolic 118–128; BP diastolic 68–80; PULSE 62–82; RESP 16; TEMP 97.6–98.3; O2SAT 94–96
--- NOTE | 2017-07-02 08:18 | PD.CARD.PN ---
Subjective Subjective Remarks Denies recurrent palpitations, recurrent CP. Denies dizziness, PND, nausea. Objective Medications Item Value Date Time Diltiazem HCl 180 mg 07/01/17 0900 (Cardizem Cd) DAILY/PO 07/01/17 115 Pravastatin Sodium 40 mg 06/30/172099 (Pravachol) HS/PO 07/01/172038 Terazosin HCl 2 mg 06/30/17 2100 (Hytrin) HS/PO 07/01/172037 Aspirin 162 mg 06/30/17 0900 (Ecotrin Ec) DAILY/PO 07/01/17 115 Amiodarone HCl 250 ml @ 33.33 mls/hr 06/30/17 0111 450 mg/Dextrose .Q7H31M PRN/IV 07/01/17 1847 Current Medications Medications (Trade) Dose Ordered Sig/Lety Route Start Time Stop Time Status Last Admin (NS Flush) 2 ml UNSCH PRN IV FLUSH 06/30/17 00:15 (NS Flush) 2 ml BID IV FLUSH 06/30/17 09:00 06/30/17 09:05 Amiodarone HCl 450 mg/Dextrose 250 ml @ 33.33 mls/ hr Q7H31M PRN IV 06/30/17 01:11 07/01/17 18:47 (Neurontin) 400 mg BID PO 06/30/17 09:00 07/01/17 20:38 (Pravachol) 40 mg HS PO 06/30/17 21:00 07/01/17 20:39 (Hytrin) 2 mg HS PO 06/30/17 21:00 07/01/17 20:38 (Pepcid) 40 mg BID PO 06/30/17 09:00 07/01/17 20:39 (Ecotrin Ec) 162 mg DAILY PO 06/30/17 09:00 07/01/17 11:54 (Cardizem Cd) 180 mg DAILY PO 07/01/17 09:00 07/01/17 11:52 Vital Signs / I&O Vital Signs Date Time Temp Pulse Resp B/P (MAP) Pulse Ox O2 Delivery O2 Flow Rate FiO2 07/02/17 06:00 71 07/02/17 05:00 64 07/02/17 04:00 67 07/02/17 03:00 71 07/02/17 03:00 98.3 68 16 118/68 (85) 95 07/02/17 02:00 76 07/02/17 01:00 68 07/02/17 00:00 68 07/01/17 23:00 78 07/01/17 23:00 99.1 73 16 125/71 (89) 94 07/01/17 22:00 74 07/01/17 21:44 95 07/01/17 21:00 99.0 74 16 134/77 (96) 95 07/01/17 21:00 72 07/01/17 20:00 76 07/01/17 19:00 76 07/01/17 18:47 76 126/66 07/01/17 18:00 77 07/01/17 16:04 98.5 78 18 147/73 (97) 93 07/01/17 12:00 74 07/01/17 12:00 98.4 94 18 145/74 (97) 94 07/01/17 11:41 70 07/01/17 08:43 98.7 75 16 130/74 (92) 94 07/01/17 08:39 75 I/O 07/01/17 07/01/17 07/01/17 07/02/17 07/02/17 07/02/17 07:00 15:00 23:00 07:00 15:00 23:00 Intake Total 444 ml 540 ml 684 ml Output Total 1025 ml 750 ml 1375 ml Balance -581 ml -210 ml -691 ml Intake Oral 240 ml 360 ml 480 ml IV Total 204 ml 180 ml 204 ml Output Urine Total 1025 ml 750 ml 1375 ml # Bowel Movements 0 0 Physical Exam GENERAL: Well developed, well nourished. No acute distress. HEENT: Jugular venous pressure is normal. CHEST: Lungs clear to auscultation bilaterally. Unlabored respiratory effort. CARDIAC: Regular rate and rhythm without S3, S4, or murmur. ABDOMEN: Soft, nontender, no hepatosplenomegaly. Bowel sounds present. EXTREMITIES: No clubbing, cyanosis, or edema. Assessment and Plan Problem List: (1) Paroxysmal atrial fibrillation ICD Codes: I48.0 - Paroxysmal atrial fibrillation Status: Acute Plan: Remains in NSR. Tolerating Amiodarone so far. Thromboembolic risk overall low providing LV function normal. Echo still pending. REC change to oral Amiodarone, continue Cardizem CD continue aspirin OK to discharge today, 3-4 week f/u with me (2) Chest pain ICD Codes: R07.9 - Chest pain, unspecified Status: Acute Plan: Stable overnight. Cardiac enzymes negative for [place]. Lexiscan nuclear stress test images reviewed. They are basically normal. (3) Hypertension ICD Codes: I10 - Essential (primary) hypertension Status: Chronic Plan: Stable. Normotensive. Code Status full code Discussed Condition With patient Problem Qualifiers (1) Chest pain: Qualified Codes: R07.9 - Chest pain, unspecified (2) Hypertension: Qualified Codes: I10 - Essential (primary) hypertension Sanket Gutierrez MD Jul 02, 2017 08:18
[2017-07-02] MEDS ORDERED: AMIODARONE 200 MG TAB PO SCH (09:00)
[2017-07-02] MEDS: GABAPENTIN 400 MG CAP PO SCH (09:25)
[2017-07-02] MEDS: FAMOTIDINE 20 MG TAB PO SCH (09:25)
[2017-07-02] MEDS: DILTIAZEM-CD 180 MG CAP ER PO SCH (09:25)
[2017-07-02] MEDS: ASPIRIN EC 81 MG TABEC PO SCH (09:26)
[2017-07-02] MEDS: SODIUM CHLORIDE 0.9% FLUSH 10 ML FLUSH IV FLUSH SCH (09:27)
--- NOTE | 2017-07-02 10:26 | ECHRPT ---
Indication: Persistent atrial fibrillation CONCLUSIONS The left ventricular systolic function is normal with an estimated ejection fraction in the range of 55-60%. Wall thickness is measured at the upper limits of normal. Normal left ventricular size. There is mild to moderate tricuspid valve regurgitation. The estimated pulmonary arterial pressure is 36.6 mmHg. BP: 103 / 78 HR: 76 Rhythm: Sinus MEASUREMENTS (Male / Female) Normal Values Technical Quality:Fair 2D ECHO LV Diastolic Diameter PLAX 5.0 cm 4.2 - 5.9 / 3.9 - 5.3 cm LV Systolic Diameter PLAX 3.8 cm IVS Diastolic Thickness 1.1 cm 0.6 - 1.0 / 0.6 - 0.9 cm LVPW Diastolic Thickness 1.1 cm 0.6 - 1.0 / 0.6 - 0.9 cm LV Relative Wall Thickness 0.5 LVOT Diameter 2.0 cm M-MODE Aortic Root Diameter MM 3.7 cm LA Systolic Diameter MM 4.2 cm LA Ao Ratio MM 1.1 AV Cusp Separation MM 2.4 cm DOPPLER AV Peak Velocity 145.0 cm/s AV Peak Gradient 8.4 mmHg LVOT Peak Velocity 107.0 cm/s LVOT Peak Gradient 4.6 mmHg AV Area Cont Eq pk 2.3 cm Mitral E Point Velocity 67.6 cm/s Mitral A Point Velocity 60.2 cm/s Mitral E to A Ratio 1.1 LV E' Lateral Velocity 6.3 cm/s Mitral E to LV E' Lateral Ratio 10.7 LV E' Septal Velocity 5.6 cm/s Mitral E to LV E' Septal Ratio 12.2 TR Peak Velocity 258.0 cm/s TR Peak Gradient 26.6 mmHg Right Atrial Pressure 10.0 mmHg Pulmonary Artery Systolic Pressu 36.6 mmHg Right Ventricular Systolic Press 36.6 mmHg PV Peak Velocity 115.0 cm/s PV Peak Gradient 5.3 mmHg FINDINGS LEFT VENTRICLE The left ventricular systolic function is normal with an estimated ejection fraction in the range of 55-60%. Wall thickness is measured at the upper limits of normal. Normal left ventricular size. RIGHT VENTRICLE Normal right ventricular size and systolic function. LEFT ATRIUM The left atrial size is normal. RIGHT ATRIUM The right atrial size is normal. ATRIAL SEPTUM Normal atrial septal thickness without atrial level shunting by limited color doppler interrogation. AORTA The aortic root and proximal ascending aorta are normal in size on limited imaging. MITRAL VALVE Structurally normal mitral valve. No mitral valve stenosis or regurgitation. AORTIC VALVE Trileaflet aortic valve. No aortic valve stenosis or regurgitation. TRICUSPID VALVE There is mild to moderate tricuspid valve regurgitation. The estimated pulmonary arterial pressure is 36.6 mmHg. PULMONARY VALVE No pulmonary valve regurgitation or stenosis. VESSELS The inferior vena cava is normal in size. PERICARDIUM No pericardial effusion. Shekhar Gallegos MD (Electronically Signed) Final Date:02 July 2017 10:25
--- NOTE | 2017-07-02 11:22 | HHI.PR ---
Subjective Remarks in no acute distress. no chest pain or sob or dizziness. noted some swelling and erythema over the right arm. d/w the RN. Objective Vitals Vital Signs Date Time Temp Pulse Resp B/P (MAP) Pulse Ox O2 Delivery O2 Flow Rate FiO2 07/02/17 10:00 62 07/02/17 09:00 74 07/02/17 08:14 98.2 74 16 128/80 (96) 96 07/02/17 08:14 74 07/02/17 06:00 71 07/02/17 05:00 64 07/02/17 04:00 67 07/02/17 03:00 71 07/02/17 03:00 98.3 68 16 118/68 (85) 95 07/02/17 02:00 76 07/02/17 01:00 68 07/02/17 00:00 68 07/01/17 23:00 78 07/01/17 23:00 99.1 73 16 125/71 (89) 94 07/01/17 22:00 74 07/01/17 21:44 95 07/01/17 21:00 99.0 74 16 134/77 (96) 95 07/01/17 21:00 72 07/01/17 20:00 76 07/01/17 19:00 76 07/01/17 18:47 76 126/66 07/01/17 18:00 77 07/01/17 16:04 98.5 78 18 147/73 (97) 93 07/01/17 12:00 74 07/01/17 12:00 98.4 94 18 145/74 (97) 94 07/01/17 11:41 70 I/O 07/01/17 07/01/17 07/01/17 07/02/17 07/02/17 07/02/17 07:00 15:00 23:00 07:00 15:00 23:00 Intake Total 444 ml 540 ml 684 ml Output Total 1025 ml 750 ml 1375 ml Balance -581 ml -210 ml -691 ml Intake Oral 240 ml 360 ml 480 ml IV Total 204 ml 180 ml 204 ml Output Urine Total 1025 ml 750 ml 1375 ml # Bowel Movements 0 0 Result Diagram: 06/30/17 1148 06/30/17 1148 Imaging Last Impressions Myocardial Perfusion Scan Nuc Med 06/30/17 0000 Signed Impressions: Service Date/Time: Friday, June 30, 2017 14:32 - CONCLUSION: Minimal redistribution as described above borderline significance. RISK CATEGORY: Low (<1%% Annual Mortality Rate) Carlos Traylor MD FACR Head CT 06/29/172246 Signed Impressions: Service Date/Time: Thursday, June 29, 2017 22:46 - CONCLUSION: Nothing acute. Terrance Webster MD Chest X-Ray 06/29/172230 Signed Impressions: Service Date/Time: Thursday, June 29, 2017 22:35 - CONCLUSION: 1. Left basilar airspace disease may represent atelectasis or early infiltrate. 2. Right lung is clear. Heart size is normal. Terrance Webster MD Objective Remarks GENERAL: This is a well-nourished, well-developed patient, in no apparent distress. CARDIOVASCULAR: Regular rate and irregular rhythm without murmurs, gallops, or rubs. RESPIRATORY: Clear to auscultation. Breath sounds equal bilaterally. No wheezes , rales, or rhonchi. GASTROINTESTINAL: Abdomen soft, non-tender, nondistended. Normal, active bowel sounds MUSCULOSKELETAL: Extremities without clubbing, cyanosis, or edema. skin; some erythema over the right arm- NEURO: Alert & Oriented x4 to person, place, time, situation. Moves all ext x4 Medications and IVs Current Medications Diltiazem HCl 125 mg/Sodium Chloride 125 ml @ 5 mls/hr TITRATE PRN IV tachycardia Last administered on 06/29/17 23:25; Start 06/29/17 at 22:45; Stop 06/30/17 at 01:00; Status DC Diltiazem HCl (Cardizem Inj) 20 mg BOLUS ONCE IV PUSH Last administered on 22:44; Start 06/29/17 at 22:45; Stop 06/29/17 at 22:46; Status DC IV Flush (NS Flush) 2 ml UNSCH PRN IV FLUSH FLUSH AFTER USING IV ACCESS; Start 06/29/17 at 22:45; Stop 06/30/17 at 00:25; Status DC Aspirin (Aspirin Chew) 162 mg ONCE ONCE CHEW Last administered on 06/29/17 22:49; Start 06/29/17 at 22:45; Stop 06/29/17 at 22:46; Status DC Nitroglycerin (Nitroglycerin 2% Oint) 1 inch ONCE ONCE TOPICAL Last administered on 06/29/17 22:49; Start 06/29/17 at 22:45; Stop 06/29/17 at 22 :46; Status DC Sodium Chloride 500 ml @ 500 mls/hr BOLUS ONCE IV Last administered on 22:45; Start 06/29/17 at 22:45; Stop 06/29/17 at 23:44; Status DC Ceftriaxone Sodium 1000 mg/ Sodium Chloride 100 ml @ 200 mls/hr ONCE ONCE IV Last administered on 06/30/17 00:23; Start 06/29/17 at 23:45; Stop 06/30/17 at 00:14; Status DC Azithromycin 500 mg/Sodium Chloride 250 ml @ 250 mls/hr ONCE ONCE IV Last administered on 06/30/17 00:04; Start 06/29/17 at 23:45; Stop 06/30/17 at 00 :44; Status DC Sodium Chloride 1,000 ml @ 1,000 mls/hr Q1H ONCE IV Last administered on 06/30 00:12; Start 06/30/17 at 00:15; Stop 06/30/17 at 01:14; Status DC Calcium Gluconate 1 gm/Dextrose 110 ml @ 110 mls/hr ONCE ONCE IV Last administered on 06/30/17 00:17; Start 06/30/17 at 00:15; Stop 06/30/17 at 01 :14; Status DC Sodium Chloride (NS Flush) 2 ml UNSCH PRN IV FLUSH FLUSH AFTER USING IV ACCESS ; Start 06/30/17 at 00:15 Sodium Chloride (NS Flush) 2 ml BID IV FLUSH Last administered on 07/02/17 09 :27; Start 06/30/17 at 09:00 Amiodarone HCl 450 mg/Dextrose 250 ml @ 33.33 mls/ hr Q7H31M PRN IV Per Protocol Last administered on 07/01/17 18:47; Start 06/30/17 at 01:11; Stop 07/02/17 at 08:20; Status DC Amiodarone HCl 150 mg/Dextrose 100 ml @ 100 mls/hr Q1H ONCE IV Last administered on 06/30/17 01:17; Start 06/30/17 at 01:01; Stop 06/30/17 at 02 :00; Status DC Gabapentin (Neurontin) 400 mg BID PO Last administered on 07/02/17 09:25; Start 06/30/17 at 09:00 Pravastatin Sodium (Pravachol) 40 mg HS PO Last administered on 07/01/17 20: 39; Start 06/30/17 at 21:00 Terazosin HCl (Hytrin) 2 mg HS PO Last administered on 07/01/17 20:38; Start 06/30/17 at 21:00 Famotidine (Pepcid) 40 mg BID PO Last administered on 07/02/17 09:25; Start 06/30/17 at 09:00 Diltiazem HCl (Cardizem) 30 mg QID PO Last administered on 06/30/17 20:51; Start 06/30/17 at 09:00; Stop 07/01/17 at 08:18; Status DC Aspirin (Ecotrin Ec) 162 mg DAILY PO Last administered on 07/02/17 09:26; Start 06/30/17 at 09:00 Amiodarone HCl 150 mg/Dextrose 103 ml @ 600 mls/hr Q11M ONCE IV ; Start at 08:16; Stop 06/30/17 at 08:27; Status DC Diltiazem HCl (Cardizem Cd) 180 mg DAILY PO Last administered on 07/02/17 09: 25; Start 07/01/17 at 09:00 Regadenoson (Lexiscan Inj) 0.4 mg STK-MED ONCE .ROUTE Last administered on 10:40; Start 07/01/17 at 10:40; Stop 07/01/17 at 10:41; Status DC Amiodarone HCl (Cordarone) 400 mg DAILY PO Last administered on 07/02/17 09: 25; Start 07/02/17 at 09:00 A/P Assessment and Plan A/P 1. New onset atrial fibrillation with rapid ventricular response- now back in NSR switched to po Amiodarone. continue po cardizem and aspirin echo with EF55% and stress test with minimal redistribution. Cardiology f/u appreciated. 2. renal insufficiency with unknown duration renal function improved- will monitor. 2. Hypertension continue po cardizem- f/u as outpatient. 3. Hyperlipidemia Continue home statin 4. some erythema and swelling over the right arm; will check venous doppler to r /o DVT. Discharge Planning possible dc home later today-pending venous doppler of the right upper extremity. see med list. f/u; pcp and cardiology. d/w the patient and RN. Jose Roberto Best MD Jul 02, 2017 11:22
[2017-07-02] MEDS ORDERED: CARD180C5 PO (11:24)
[2017-07-02] MEDS ORDERED: AMIO200T PO (11:24)
[2017-07-02] MEDS ORDERED: ECASA81 PO (11:24)
--- NOTE | 2017-07-02 11:27 | HHI.DS ---
Discharge Summary Admission Date Jun 30, 2017 at 00:10 Discharge Date: Jul 02, 2017 Admitting Diagnosis afib with rvr, chest pain r/o mi, lung infiltrate (1) Atrial fibrillation with RVR ICD Code: I48.91 - Unspecified atrial fibrillation Diagnosis: Principal Status: Acute (2) Chest pain ICD Code: R07.9 - Chest pain, unspecified Diagnosis: Principal Status: Acute Procedures none Brief History - From Admission 66-year-old male with a past medical history significant for hypertension, hyperlipidemia and chronic back pain presents with new onset chest pain, heart palpitations and lightheadedness that began approximately 2 hours before coming to the emergency department. The patient reports that he went to work like he usually does yesterday and came home and began experiencing symptoms. He took his prescription medication of ibuprofen with no relief. He has no history of cardiac issues or irregular heartbeat. In the emergency department and his heart rate was 155 and EKG was significant for atrial fibrillation with rapid ventricular response. No ST segment elevations or depressions. He was treated with a diltiazem bolus and drip and subsequently became hypotensive to 73/39. His hypotension resolved with IV fluid hydration. CBC/BMP: 06/30/17 1148 06/30/17 1148 Significant Findings Laboratory Tests Test 06/29/17 22:35 06/29/17 23:57 06/30/17 05:12 06/30/17 11:48 White Blood Count 11.1 TH/MM3 (4.0-11.0) Activated Partial Thromboplast Time 30.4 SEC (24.3-30.1) Blood Urea Nitrogen 25 MG/DL (7-18) 21 MG/DL (7-18) Creatinine 1.51 MG/DL (0.60-1.30) Random Glucose 134 MG/DL (74-106) Estimat Glomerular Filtration Rate 46 ML/MIN (>89) 65 ML/MIN (>89) Troponin I LESS THAN 0.02 NG/ML LESS THAN 0.02 NG/ML LESS THAN 0.02 NG/ML Urine Leukocyte Esterase SMALL (NEG) Urine Mucus MANY /lpf (OCC) Red Blood Count 4.34 MIL/MM3 (4.50-5.90) Imaging Last Impressions Myocardial Perfusion Scan Nuc Med 06/30/17 0000 Signed Impressions: Service Date/Time: Friday, June 30, 2017 14:32 - CONCLUSION: Minimal redistribution as described above borderline significance. RISK CATEGORY: Low (<1%% Annual Mortality Rate) Carlos Traylor MD FACR Head CT 06/29/172246 Signed Impressions: Service Date/Time: Thursday, June 29, 2017 22:46 - CONCLUSION: Nothing acute. Terrance Webster MD Chest X-Ray 06/29/171 Signed Impressions: Service Date/Time: Thursday, June 29, 2017 22:35 - CONCLUSION: 1. Left basilar airspace disease may represent atelectasis or early infiltrate. 2. Right lung is clear. Heart size is normal. Terrance Webster MD PE at Discharge GENERAL: This is a well-nourished, well-developed patient, in no apparent distress. CARDIOVASCULAR: Regular rate and irregular rhythm without murmurs, gallops, or rubs. RESPIRATORY: Clear to auscultation. Breath sounds equal bilaterally. No wheezes , rales, or rhonchi. GASTROINTESTINAL: Abdomen soft, non-tender, nondistended. Normal, active bowel sounds MUSCULOSKELETAL: Extremities without clubbing, cyanosis, or edema. skin; some erythema over the right arm- NEURO: Alert & Oriented x4 to person, place, time, situation. Moves all ext x4 Hospital Course patient was started on IV Amiodarone and also Cardizem. he tolerated Amiodarone well and this was switched to po upon discharge. his cardiac enzymes negative along with stress test. his echo showed EF 55%. he was started on Aspirin. he was cleared by Cardiology for discharge with outpatient follow-up. Pt Condition on Discharge: Good Discharge Disposition: Discharge Home Discharge Time: <= 30 minutes Discharge Instructions DIET: Follow Instructions for: Heart Healthy Diet Activities you can perform: Regular-No Restrictions Follow up Referrals: Cardiology PCP Follow-up New Medications: Amiodarone (Amiodarone) 200 Mg Tab 400 MG PO DAILY for a-fib for 30 Days, #60 TAB [address] (Aspirin DR) 81 Mg Tabdr 162 MG PO DAILY for a-fib for 30 Days, #60 TAB 0 Refills Diltiazem CD 24 HR (Cardizem CD 24 HR) 180 Mg Caper 180 MG PO DAILY for a-fib for 30 Days, #30 CAP 0 Refills Continued Medications: Baclofen (Baclofen) 10 Mg Tab 10 MG PO Q8HR, TAB 0 Refills Cholecalciferol (D3 Super Strength) 2,000 Unit Cap 1000 UNITS PO DAILY for Nutritional Supplement, #30 CAP 0 Refills Gabapentin (Gabapentin) 400 Mg Cap 400 CAP PO BID, #30 CAP 0 Refills Pravastatin (Pravastatin) 40 Mg Tab 40 MG PO HS for Cholesterol Management, #30 TAB 0 Refills Ranitidine (Ranitidine) 300 Mg Tab 300 MG PO BID for Heartburn Management, #30 TAB 0 Refills Terazosin (Terazosin) 2 Mg Cap 2 MG PO HS, #30 CAP 0 Refills Tramadol (Tramadol) 50 Mg Tab 50 MG PO Q4H PRN for PAIN, TAB 0 Refills Discontinued Medications: Lisinopril-Hctz (Lisinopril-Hctz) 10-12.5 Mg Tab 1 TAB PO DAILY for Blood Pressure Management, #30 TAB 0 Refills Jose Roberto Best MD Jul 02, 2017 11:27
--- NOTE | 2017-07-02 13:55 | RADRPT ---
EXAM DATE/TIME: 07/02/2017 13:33 [facility] COMPARISON: No previous studies available for comparison. INDICATIONS : Right arm swelling. MEDICAL HISTORY : Hypercholesterolemia. Hypertension. Gastroesophageal reflux disease. SURGICAL HISTORY : Tonsillectomy. Cholecystectomy. ENCOUNTER: Initial ACUITY: 1 day PAIN SCORE: 3/10 LOCATION: Right arm. FINDINGS: There is spontaneous flow documented in the brachial, cephalic, axillary, and subclavian veins. The vessels are compressible and augmentation response is documented. No filling defects are seen. The flow is phasic with respiration. Direction of flow in the jugular vein is caudal. Occlusive thrombu s is noted in the mid and distal basilic vein which is noncompressible and demonstrates no waveform a ugmentation response. CONCLUSION: Occlusive thrombus in the mid and distal basilic vein. The deep venous system is haas nt. Mike Gaffney MD on July 02, 2017 at 13:52 Board Certified Radiologist. This report was verified electronically.
--- NOTE | 2017-07-03 16:43 | EKG ---
Date Performed: 07/02/2017 Time Performed: 11:02:24 PTAGE: 66 years EKG: Normal Sinus rhythm Nonspecific ST-T wave changes Compared to previous tracing, the patient is no longer in atrial fibri llation. Abnormal ECG PREVIOUS TRACING : 06/30/2017 04.11 DOCTOR: Shabnam Thomas Interpretating Date/Time 07/03/2017 16:41:54
== END 2017-07-02 15:10 | disposition home or self-care (01) | DRG 310 ==
LOC: NEPE 22:19 → NEDA 06-30 00:10 → HCIS 06-30 01:30
PROVIDERS: ADMIT Internal Medicine; ATTEND Internal Medicine
DX: I48.0 Paroxysmal atrial fibrillation (principal); I10 Essential (primary) hypertension; E78.5 Hyperlipidemia, unspecified; M54.5 Low back pain; G89.29 Other chronic pain; I95.2 Hypotension due to drugs; T46.3X5A Adverse effect of coronary vasodilators, initial encounter; Y92.238 Other place in hospital as the place of occurrence of the external cause; N28.9 Disorder of kidney and ureter, unspecified; Z79.01 Long term (current) use of anticoagulants; Z79.82 Long term (current) use of aspirin; Z87.891 Personal history of nicotine dependence
CPT/HCPCS: 70450; 71010; 78452; 80048; 80053; 81001; 82550; 82552; 83690; 83735; 83880; 84443; 84484; 85025; 85027; 85610; 85730; 93005; 93017; 93306; 93971; 96365; A9502; J0282; J0456; J0610; J0696; J2785; J7030; J7040; J7050; J7060